=== PATIENT | male | born 1990 | race Caucasian/White ===

== ENCOUNTER 2019-01-23 18:22 | Emergency (ER) | payer MEDICAID ==
[~2019-01-23] VITALS: Ht 172.7 cm; Wt 63.5 kg
--- NOTE | 2019-01-23 18:56 | NUR ---
report given to Maurilio Ohara
--- NOTE | 2019-01-23 19:02 | NUR ---
Assumed care of patient from NAHUN Dan.
--- NOTE | 2019-01-23 19:15 | NUR ---
Receieved patient in bed. AAOX4. In no cardio pulmonary distress. Respiratory even and unlabored. Compalin of pain and swelling on left middle finger. Left middle finger swollen, reddened and painful x2 day per pt. No open skin/no bleeding. No circulatory concerns are noted. Sensation intact.
--- NOTE | 2019-01-23 19:24 | NUR ---
Dr. Hanson on bedside for MSE.
[2019-01-23] MEDS ORDERED: LIDOCAINE 4% TOPICAL 50 ML BOTTLE TP ONE (19:30)
[2019-01-23] MEDS ORDERED: MUPIROCIN 2% OINT 22 GM TUBE TP ONE (20:00)
[2019-01-23] MEDS ORDERED: HYDROCODONE/APAP 5-325MG TABLET PO ONE (20:00)
[2019-01-23] MEDS ORDERED: HYDROCODONE/APAP 5-325MG TABLET ONE (20:02)
[2019-01-23] MEDS ORDERED: MUPIROCIN 2% OINT 22 GM TUBE ONE (20:02)
[2019-01-23 20:18] VITALS: BP 127/70
--- NOTE | 2019-01-23 20:19 | NUR ---
Patient discharged to home in stable conditon. Written and verbal after care instructions given. Patient verbalizes understanding of instructions. Ambulated from ER with steady gait. All belongings with patient.
== END 2019-01-23 20:17 | disposition home or self-care (01) ==
LOC: ER 18:25
DX: L03.012 Cellulitis of left finger (principal)
CPT/HCPCS: A4663

== ENCOUNTER 2019-11-13 17:17 | Emergency (ER) | payer MEDICAID ==
[~2019-11-13] VITALS: Ht 172.7 cm; Wt 59.0 kg
--- NOTE | 2019-11-13 17:37 | NUR ---
PATIENT WAS SEEN BY .
[2019-11-13] MEDS ORDERED: CEFTRIAXONE 500 MG VIAL IM ONE (17:45)
[2019-11-13] MEDS ORDERED: CEphaleXIN 500 MG CAPSULE PO ONE (17:45)
[2019-11-13] MEDS ORDERED: AZITHROMYCIN 250 MG TABLET PO ONE (17:45)
[2019-11-13] MEDS ORDERED: SULFAMETH/TRIMETH 800/160 MG TABLET PO ONE (17:45)
[2019-11-13] MEDS ORDERED: AZITHROMYCIN 250 MG TABLET ONE (17:49)
[2019-11-13] MEDS ORDERED: SULFAMETH/TRIMETH 800/160 MG TABLET ONE (17:49)
[2019-11-13] MEDS ORDERED: CEphaleXIN 500 MG CAPSULE ONE (17:49)
[2019-11-13] MEDS ORDERED: LIDOCAINE HCL 1% 20 ML VIAL ONE (17:49)
[2019-11-13] MEDS ORDERED: CEFTRIAXONE 500 MG VIAL ONE (17:50)
--- NOTE | 2019-11-13 17:52 | NUR ---
PATIENT ATE A SANDWICH AND DRANK SOME JUICE. HE IS WEARING CLEAN SHORTS AND A CLEAN SHIRT. HE HAS A MASK.
[2019-11-13] MEDS ORDERED: BACITRACIN ZINC OINT 15 GM TUBE TOP STA (17:55)
--- NOTE | 2019-11-13 17:55 | NUR ---
Chaperoned Dr. Hernandez for MSE
[2019-11-13 17:58] LABS: *CLARITY,URINE CLOUDY (CLEAR); *COLOR,URINE YELLOW (YELLOW); *KETONES,URINE TRACE (NEGATIVE); LEUKOCYTE ESTERASE ,URINE 3+ (NEGATIVE); NITRITE, URINE NEGATIVE (NEGATIVE); PH,URINE 5.5 (5.0-8.0); UGLUCOSE NEGATIVE (NEGATIVE)
[2019-11-13] MEDS ORDERED: NEOMY/BACITRA/POLYMYXIN B OINT UD PACKET TP ONE ×2 (17:58→18:15)
[2019-11-13 17:59] LABS: *BILIRUBIN,URIN 1+ (NEGATIVE); *BLOOD, URINE TRACE (NEGATIVE)
--- NOTE | 2019-11-13 18:16 | NUR ---
PATIENT STATES HE DOES NOT NEED ASSITANCE WITH [facility]PC OR FOOD.
--- NOTE | 2019-11-13 18:17 | NUR ---
DC, RX AND FOLLOW UP INSTRUCTIONS GIVEN AND EXPLAINED TO PATIENT WHO STATES HE UNDERSTANDS ALL INSTRUCTIONS.
[2019-11-13 20:08] LABS: BACTERIA,URINE FEW /HPF (NONE SEEN); RBC,URINE 0-3 /HPF (0-3)
[2019-11-16 01:22] LABS: *TRIC.VAG. NAA Positive (Negative)
[2019-11-16 02:13] LABS: *GC NAA Positive (Negative)
== END 2019-11-13 18:17 | disposition home or self-care (01) ==
LOC: ER 17:17
DX: L03.114 Cellulitis of left upper limb (principal); L03.011 Cellulitis of right finger; A64 Unspecified sexually transmitted disease; S50.812A Abrasion of left forearm, initial encounter; S60.512A Abrasion of left hand, initial encounter; X58.XXXA Exposure to other specified factors, initial encounter; Y92.89 Other specified places as the place of occurrence of the external cause; Z59.0 Homelessness
CPT/HCPCS: 81001; 87086; 87491; 96372; 99284; J0696; J3490; A4663; Q0144

== ENCOUNTER 2020-05-08 12:09 | Emergency (ER) | payer MEDICAID, OTHER ==
[~2020-05-08] VITALS: Ht 172.7 cm; Wt 59.0 kg
--- NOTE | 2020-05-08 12:21 | NUR ---
DR Strickland at the bedside for MSE.
[2020-05-08] MEDS ORDERED: CEFTRIAXONE 500 MG VIAL IM ONE (12:45)
[2020-05-08] MEDS ORDERED: DOXY100C2 PO (12:53)
[2020-05-08] MEDS ORDERED: ONDA4TAB5 PO (12:53)
[2020-05-08] MEDS ORDERED: LIDOCAINE HCL 1% 20 ML VIAL ONE (12:53)
[2020-05-08] MEDS ORDERED: CEFTRIAXONE 500 MG VIAL ONE (12:53)
[2020-05-08 12:54] LABS: *BILIRUBIN,URIN NEGATIVE (NEGATIVE); *BLOOD, URINE NEGATIVE (NEGATIVE); *CLARITY,URINE CLEAR (CLEAR); *COLOR,URINE YELLOW (YELLOW); *KETONES,URINE NEGATIVE (NEGATIVE); *UROBILINOGEN,URINE 0.2 E.U./dl (NORMAL); LEUKOCYTE ESTERASE ,URINE 1+ (NEGATIVE); NITRITE, URINE NEGATIVE (NEGATIVE); UGLUCOSE NEGATIVE (NEGATIVE)
--- NOTE | 2020-05-08 12:55 | NUR ---
Pt provided list of free health clinincs in the area.
--- NOTE | 2020-05-08 13:01 | NUR ---
Patient discharged to home in stable condition. Written and verbal after care instructions given. Patient verbalizes understanding of instructions. Stressed follow up or return to ER for worsening s/s.
[2020-05-08 13:07] VITALS: BP 137/78
[2020-05-08 22:06] LABS: BACTERIA,URINE FEW /HPF (NONE SEEN); SQUAMOUS EPITHELIAL CELL,UR FEW /HPF (NONE SEEN)
[2020-05-12 16:42] LABS: *TRIC.VAG. NAA POSITIVE ABNORMAL
[2020-05-12 16:43] LABS: *GC NAA NEGATIVE
== END 2020-05-08 13:08 | disposition home or self-care (01) ==
LOC: ER 12:10
DX: A64 Unspecified sexually transmitted disease (principal); Z72.51 High risk heterosexual behavior; R03.0 Elevated blood-pressure reading, without diagnosis of hypertension
CPT/HCPCS: 81001; 87086; 87491; 96372; 99283; J0696; J3490; A4663

== ENCOUNTER 2020-06-12 23:53 | Emergency (ER) | payer OTHER ==
[~2020-06-12] VITALS: Ht 172.7 cm; Wt 59.0 kg
[~2020-06-12 23:53] MED LIST: DOXY100C2 PO; ONDA4TAB5 PO
--- NOTE | 2020-06-13 | NUR ---
MD Boyd in room to do MSE.
--- NOTE | 2020-06-13 00:15 | NUR ---
marine diesel technician arrived to take patient to CT scan and x-ray.
[2020-06-13 01:00] VITALS: BP 123/75
--- NOTE | 2020-06-13 01:00 | NUR ---
Patient discharged to home in stable condition. Written and verbal after care instructions given. Patient verbalizes understanding of instructions. Stressed follow up or return to ER for worsening s/s. Patient ambulates with steady gait, received thumb spica & sling, and left with all personal belongings.
== END 2020-06-13 01:00 | disposition home or self-care (01) ==
LOC: ER 23:56
DX: M21.332 Wrist drop, left wrist (principal); G56.32 Lesion of radial nerve, left upper limb; R51.9 Headache, unspecified; F15.10 Other stimulant abuse, uncomplicated; Z59.0 Homelessness
CPT/HCPCS: 70450; 73090; A4663

== ENCOUNTER 2021-02-27 23:41 | Emergency (ER) | payer OTHER ==
[~2021-02-27] VITALS: Ht 172.7 cm; Wt 68.0 kg
[~2021-02-27 23:41] MED LIST changes: -DOXY100C2 PO; +DOXY100C5 PO
[2021-02-28] MEDS ORDERED: DICYCLOMINE HCL LIQ 10 MG/5 ML UDC PO ONE
[2021-02-28] MEDS ORDERED: CEFTRIAXONE 500 MG VIAL IM ONE
[2021-02-28] MEDS ORDERED: MAG HYDROX/AL HYDROX/SIMETH 30 ML LIQUID UDC PO ONE
[2021-02-28] MEDS ORDERED: LIDOCAINE VISCUS 2% 15 ML UDC MM ONE
[2021-02-28] MEDS ORDERED: OMEP40CA21 PO (00:04)
[2021-02-28 00:09] LABS: *BILIRUBIN,URIN 1+ (NEGATIVE); *BLOOD, URINE NEGATIVE (NEGATIVE); *COLOR,URINE YELLOW (YELLOW); *KETONES,URINE 1+ (NEGATIVE); LEUKOCYTE ESTERASE ,URINE 1+ (NEGATIVE); NITRITE, URINE NEGATIVE (NEGATIVE); UGLUCOSE NEGATIVE (NEGATIVE)
[2021-02-28] MEDS ORDERED: DICYCLOMINE HCL LIQ 10 MG/5 ML UDC ONE (00:14)
[2021-02-28] MEDS ORDERED: LIDOCAINE VISCUS 2% 15 ML UDC ONE (00:14)
[2021-02-28] MEDS ORDERED: CEFTRIAXONE 500 MG VIAL ONE (00:14)
[2021-02-28] MEDS ORDERED: MAG HYDROX/AL HYDROX/SIMETH 30 ML LIQUID UDC ONE (00:15)
[2021-02-28 00:20] VITALS: BP 128/79
[2021-02-28 00:20] LABS: *CLARITY,URINE HAZY (CLEAR)
[2021-02-28 00:26] LABS: BACTERIA,URINE FEW /HPF (NONE SEEN); SQUAMOUS EPITHELIAL CELL,UR FEW /HPF (NONE SEEN)
== END 2021-02-28 00:20 | disposition home or self-care (01) ==
LOC: ER 23:47
DX: A54.09 Other gonococcal infection of lower genitourinary tract (principal); R12 Heartburn; F17.210 Nicotine dependence, cigarettes, uncomplicated
CPT/HCPCS: 81001; 87086; 96372; 99284; 99406; J0696; A4663

== ENCOUNTER 2022-12-20 04:13 | Emergency (ER) | payer OTHER ==
[~2022-12-20] VITALS: Ht 172.7 cm; Wt 59.0 kg
[~2022-12-20 04:13] MED LIST changes: +OMEP40CA21 PO
[2022-12-20] MEDS ORDERED: IBUPROFEN 800 MG TABLET PO ONE (04:45)
[2022-12-20] MEDS ORDERED: IBUPROFEN 800 MG TABLET ONE (04:48)
[2022-12-20] MEDS ORDERED: AMOX500T2 PO (04:52)
[2022-12-20] MEDS ORDERED: IBUP-1955 PO (04:52)
[2022-12-20 05:00] VITALS: BP 125/58; TEMP 97.9; O2SAT 97
== END 2022-12-20 05:00 | disposition home or self-care (01) ==
LOC: ER 04:23
DX: K02.9 Dental caries, unspecified (principal); F17.210 Nicotine dependence, cigarettes, uncomplicated; Z79.2 Long term (current) use of antibiotics; Z79.899 Other long term (current) drug therapy
CPT/HCPCS: A4663